=== PATIENT | female | born 1975 | race Caucasian/White ===

== ENCOUNTER 2020-04-20 07:17 | Day surgery (SDC) | payer OTHER ==
[~2020-04-20 07:17] MED LIST: Lactated Ringers 1,000 ML IV SCH; Sodium Chloride 0.9% 10 ML Syringe FLUSH PRN
[2020-04-20] MEDS ORDERED: Lidocaine 1% PF 2 ML SDV INJECT ONE (07:18)
[2020-04-20] MEDS ORDERED: Propofol 200 MG/20 ML SDV IV ONE (07:18)
--- NOTE | 2020-04-20 09:09 | PCM.OPNOTE ---
- General Post-Op/Procedure Note Date of Surgery/Procedure: 04/20/20 Operative Procedure(s): c scope Findings: no polyps. does have a very prominent appendiceal orifice Pre Op Diagnosis: family hx of colon polyps Post-Op Diagnosis: nl c scope Anesthesia Technique: MAC Primary Surgeon: Jono Calvillo Anesthesia Provider: Mauricio London Pathology: none submitted Complications: None Condition: Good Free Text/Narrative:: see dictation #[id number]
--- NOTE | 2020-04-20 09:48 | OR ---
DATE OF OPERATION: 04/20/2020 SURGEON: Jono Calvillo MD PROCEDURE PERFORMED: Colonoscopy. PREOPERATIVE DIAGNOSIS: Family history of colon polyps as well as a family history of colon cancer with her grandfather. INDICATIONS FOR PROCEDURE: This is a 45-year-old white female, whose last colonoscopy was 10 years ago, and it was recommended that she have a repeat scope in 10 years due to her family history. She presents now for this colonoscopy. DESCRIPTION OF PROCEDURE: After an excellent IV sedation was administered, digital rectal exam was performed. No marked abnormality was noted. The flexible colonoscope was inserted and advanced without difficulty to the patient's cecum. The prep was excellent. The following findings were noted: In the cecum, she has a rather prominent appendiceal orifice. The scope could actually be inserted into the mouth of the appendix. However, the ileocecal valve was easily identified as well. Photos were taken for the record. No other marked abnormality was noted. The remainder of the ascending colon was unremarkable. The transverse colon was unremarkable. The descending colon was unremarkable. The sigmoid and rectum were unremarkable. The colon was deflated. The scope was removed. RECOMMENDATIONS: Repeat colonoscopy in 10 years or sooner on a p.r.n. basis. /[id number] /MODL
== END 2020-04-20 09:57 | disposition home or self-care (01) ==
LOC: FB.SDS 07:17
PROVIDERS: ATTEND Surgery
DX: Z12.11 Encounter for screening for malignant neoplasm of colon (principal); E66.01 Morbid (severe) obesity due to excess calories; G47.9 Sleep disorder, unspecified; L20.82 Flexural eczema; Z80.0 Family history of malignant neoplasm of digestive organs; Z83.71 Family history of colonic polyps; Z79.899 Other long term (current) drug therapy; Z98.84 Bariatric surgery status; Z90.49 Acquired absence of other specified parts of digestive tract; Z68.35 Body mass index [BMI] 35.0-35.9, adult; Z98.890 Other specified postprocedural states
CPT/HCPCS: 00811-QZ; J2704; J7120